=== PATIENT | male | born 2000 | race Caucasian/White ===

== ENCOUNTER 2022-06-13 08:03 | Emergency (ER) | payer BC ==
[2022-06-13] MEDS ORDERED: Ondansetron PF 4 MG/2 ML Vial ONE ×2 (08:37→10:43)
[2022-06-13 09:07] LABS: #Basophils 0.1 10x3/uL (0.0-0.2); #Eosinphils 0.1 10x3/uL (0.0-0.5); #Monocytes 0.9 10x3/uL (0.0-1.1); #Neutrophils 16.8 10x3/uL (1.5-8.4); %Basophils 0.4 % (0.0-2.0); %Eosinophils 0.6 % (0.0-6.0); %Lymphocytes 3.4 % (18.0-47.0); %Monocytes 4.7 % (0.0-10.0); %Neutrophils 90.4 % (40.0-75.0); Hemoglobin 17.2 g/dL (13.5-17.5); Mean Corpuscular HGB CONC 34.9 g/dL (32.0-36.0); Mean Corpuscular Hemoglobin 30.7 pg (27.0-33.0); Mean Corpuscular Volume 87.9 fl (81.2-95.1); Mean Platelet Volume 11.5 fl (7.4-10.4); Platelet Count 273 10x3/uL (150-450); RBC Distribution Width 11.9 % (11.5-14.5); Red Blood Cell (RBC) Count 5.61 10x6/uL (4.32-5.72); White Blood Cell (WBC) Count 18.6 10x3/uL (3.5-10.5)
[2022-06-13 09:27] LABS: ALT (SGPT) 32 U/L (8-55); AST (SGOT) 22 U/L (5-34); Albumin 5.6 g/dL (3.5-5.0); Alkaline Phosphatase 122 U/L (50-130); Anion Gap 19 mmol/L (10-20); BUN (Urea Nitrogen) 17 mg/dL (8.9-20.6); Bilirubin, Total 1.5 mg/dL (0.2-1.2); Calc. Creatinine Clearance 0 mL/min (70-130); Calcium 10.8 mg/dL (7.8-10.44); Carbon Dioxide 23 mmol/L (22-29); Chloride 103 mmol/L (98-107); Estimated GFR 111; Globulin 2.1 g/dL (2.4-3.5); Glucose 105 mg/dL (70-105); Lipase 6 U/L (8-78); Potassium 4.9 mmol/L (3.5-5.1); Protein, Total 7.7 g/dL (6.0-8.3); Sodium 140 mmol/L (136-145)
[2022-06-13] MEDS ORDERED: Piperacillin/Tazobactam 4.5 GM VIAL ONE (10:03)
[2022-06-13] MEDS ORDERED: Iopamidol 300 61% 100 ML VIAL FS ONE (14:19)
== END 2022-06-13 11:53 | disposition home or self-care (01) ==
LOC: CSHERS 08:03
DX: R11.2 Nausea with vomiting, unspecified (principal)
CPT/HCPCS: 74177; 80053; 83690; 85025; 96361; 96365; 96375; 96376; J2405; J2543; Q9967